=== PATIENT | female | born 1970 | race Caucasian/White ===

== ENCOUNTER 2017-04-30 07:47 | Emergency (ER) | payer OTHER ==
[~2017-04-30] VITALS: Ht 149.9 cm; Wt 68.0 kg
== END 2017-04-30 09:16 | disposition home or self-care (01) ==
LOC: ER 07:47
DX: S61.211A Laceration without foreign body of left index finger without damage to nail, initial encounter (principal); W26.0XXA Contact with knife, initial encounter; Y93.89 Activity, other specified; Y92.89 Other specified places as the place of occurrence of the external cause; Y99.8 Other external cause status